=== PATIENT | male | born 1990 | race Caucasian/White ===

== ENCOUNTER 2016-11-03 14:31 | Emergency (ER) | payer MEDICAID ==
[~2016-11-03] VITALS: Ht 185.4 cm; Wt 75.0 kg
[2016-11-03] MEDS ORDERED: SODIUM CHLORIDE 0.9% 1,000ML IVBOLUS ONE ×2 (15:00→19:30)
[2016-11-03 15:50] LABS: BLOOD UREA NITROGEN 29 mg/dL (7-18)
[2016-11-03 15:55] LABS: IS PT STATUS REG ER OR PRE ER? YES
[2016-11-03 19:26] LABS: DAU SCREEN DISCLAIMER
[2016-11-03 22:34] VITALS: BP 108/54
== END 2016-11-03 23:10 | disposition home or self-care (01) ==
LOC: ED 17:47
DX: F15.129 Other stimulant abuse with intoxication, unspecified (principal)
CPT/HCPCS: 36415; 71010; 80048; 80307; 82040; 84484; 85025; 93005; 96360; 96361; 99285; J7030

== ENCOUNTER 2017-07-09 02:40 | Emergency (ER) | payer MEDICAID | END 2017-07-09 02:45 | LOC: MERGE 02:40 → ED 02:40 | DX: Z53.21 Procedure and treatment not carried out due to patient leaving prior to being seen by health care provider (principal) ==

== ENCOUNTER 2017-07-09 02:43 | Emergency (ER) | payer MEDICAID | END 2017-07-09 03:20 | LOC: ED 02:54 | DX: Z53.21 Procedure and treatment not carried out due to patient leaving prior to being seen by health care provider (principal) ==

== ENCOUNTER 2019-02-04 15:47 | Inpatient (IN) | payer MEDICAID ==
[~2019-02-04] VITALS: Ht 185.4 cm; Wt 74.0 kg
[2019-02-04 20:06] VITALS: BP 110/72
== END 2019-02-05 08:13 | disposition left against medical advice (07) | DRG 872 ==
LOC: ED 16:42 → EDIP 18:34 → 4EST 20:10
PROVIDERS: ADMIT Family Medicine; ATTEND Family Medicine
DX: A41.9 Sepsis, unspecified organism (principal); M62.82 Rhabdomyolysis; N17.9 Acute kidney failure, unspecified; E16.2 Hypoglycemia, unspecified; E86.0 Dehydration; Z53.21 Procedure and treatment not carried out due to patient leaving prior to being seen by health care provider; E87.6 Hypokalemia; F11.90 Opioid use, unspecified, uncomplicated; F12.90 Cannabis use, unspecified, uncomplicated; F15.90 Other stimulant use, unspecified, uncomplicated; F25.9 Schizoaffective disorder, unspecified; F43.10 Post-traumatic stress disorder, unspecified; F90.9 Attention-deficit hyperactivity disorder, unspecified type; J45.909 Unspecified asthma, uncomplicated; N30.91 Cystitis, unspecified with hematuria; Z80.0 Family history of malignant neoplasm of digestive organs; Z80.1 Family history of malignant neoplasm of trachea, bronchus and lung; Z87.891 Personal history of nicotine dependence; Z91.14 Patient's other noncompliance with medication regimen
CPT/HCPCS: 36415; 71045; 80048; 80076; 80307; 81001; 82040; 82550; 83605; 83735; 84443; 85025; 87040; 87086; 87389; 93005; 96361; 96374; G0378; J0696; J1644; J7030; J7120

== ENCOUNTER 2019-06-21 12:33 | Emergency (ER) | payer MEDICAID ==
[~2019-06-21] VITALS: Ht 185.4 cm; Wt 74.7 kg
[2019-06-21 12:38] VITALS: BP 112/67
[2019-06-21] MEDS ORDERED: LIDOCAINE-MPF 1%, 5ML INFIL ONE (13:00)
[2019-06-21] MEDS ORDERED: LIDOCAINE-MPF 1%, 5ML ONE (13:00)
--- NOTE | 2019-06-21 13:18 | NUR ---
BULKY GAUZE DRESSING APPLIED.
== END 2019-06-21 13:28 | disposition home or self-care (01) ==
LOC: ED 13:15
DX: L02.11 Cutaneous abscess of neck (principal); J45.909 Unspecified asthma, uncomplicated
CPT/HCPCS: 10060; 99283

== ENCOUNTER 2019-06-24 05:02 | Emergency (ER) | payer MEDICAID ==
[~2019-06-24] VITALS: Ht 185.4 cm; Wt 72.6 kg
[2019-06-24 05:04] VITALS: BP 123/71
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
== END 2019-06-24 06:23 | disposition home or self-care (01) ==
LOC: ED 05:13
DX: L02.512 Cutaneous abscess of left hand (principal); J45.909 Unspecified asthma, uncomplicated
CPT/HCPCS: 99283

== ENCOUNTER 2019-06-30 10:24 | Emergency (ER) | payer MEDICAID ==
[~2019-06-30] VITALS: Ht 185.4 cm; Wt 74.7 kg
[2019-06-30 10:40] VITALS: BP 98/61
== END 2019-06-30 11:18 | disposition home or self-care (01) ==
LOC: ED 11:03
DX: L02.11 Cutaneous abscess of neck (principal); F17.200 Nicotine dependence, unspecified, uncomplicated
CPT/HCPCS: 99283

== ENCOUNTER 2019-07-03 23:53 | Emergency (ER) | payer MEDICAID ==
[~2019-07-03] VITALS: Ht 185.4 cm; Wt 78.7 kg
[2019-07-03 23:56] VITALS: BP 135/87
--- NOTE | 2019-07-04 00:34 | NUR ---
Patient/Caregiver given discharge instructions and they have confirmed that they understand the instructions. Patient ambulatory with steady gait.
== END 2019-07-04 00:36 | disposition home or self-care (01) ==
LOC: ED 07-04 00:14
DX: L02.11 Cutaneous abscess of neck (principal); L02.414 Cutaneous abscess of left upper limb
CPT/HCPCS: 99282

== ENCOUNTER 2019-07-24 14:47 | Inpatient (IN) | payer MEDICAID ==
[~2019-07-24] VITALS: Ht 185.4 cm; Wt 84.7 kg
[2019-07-24] MEDS ORDERED: SODIUM CHLORIDE FLUSH 10ML SYR IVF ONE ×2 (16:00→18:00)
[2019-07-24 16:08] LABS: MEAN CORPUSCULAR HEMOGLOBIN 30.9 pg (27.5-34.5); MEAN CORPUSCULAR HGB CONC 34.5 g/dL (33.2-36.2); MEAN CORPUSCULAR VOLUME 89.7 fL (81-97); MEAN PLATELET VOLUME 7.9 fL (7.4-10.4); PLATELET COUNT 314 x10^3/uL (130-400); RED BLOOD COUNT 5.26 x10^6/uL (4.38-5.82); RED CELL DISTRIBUTION WIDTH 13.1 % (9.4-14.8)
[2019-07-24] MEDS ORDERED: LORazepam 1MG TABLET ONE ×2 (16:09→17:12)
[2019-07-24 16:16] LABS: ALBUMIN 4.8 g/dL (3.4-5.0); ANION GAP 13 mmol/L (5-15); CALCIUM 10.1 mg/dL (8.5-10.1); CHLORIDE 99 mmol/L (98-107); CREATININE 1.57 mg/dL (0.7-1.3)
[2019-07-24 16:18] LABS: MD YES
[2019-07-24] MEDS ORDERED: LORazepam 1MG TABLET PO ONE ×2 (16:30→17:30)
[2019-07-24 17:03] LABS: <PLATELET ESTIMATE> ADEQUATE; <PLT MORPHOLOGY> NORMAL PLT MORPH; <RBC MORPHOLOGY> NORMAL; BAND#(MANUAL) 0.36 x10^3/uL; BANDS%(MANUAL) 2 % (0-7); LYMPH#(MANUAL) 1.79 x10^3/uL (1-3.4); LYMPHS% (MANUAL) 10 % (22-44); MONOS#(MANUAL) 1.97 x10^3/uL (0.3-2.7); MONOS% (MANUAL) 11 % (2-9); SEG#(MANUAL) 13.78 x10^3/uL (1.8-6.8); SEGS% (MANUAL) 77 % (42-75)
[2019-07-24 17:20] LABS: CREATINE KINASE, TOTAL 82485 U/L (39-308)
--- NOTE | 2019-07-24 17:31 | NUR ---
SPOKE WITH PATIENT REGARDING DRUG USAGE AND FREQUENCY. 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 PATIENT ADMITTED TO USING COCAINE, ALCOHOL, AND MARIJUANA. PATIENT STATED THAT HE HAD A MEETING WITH HIS PROGRAM ADMINISTRATOR TWO DAYS AGO AND THAT CAUSED HIM TO PURCHASE METH. PATIENT ADMITTED HAVING SOBER TIME PERIODS WITHIN THE LAST TWO YEARS. ADMITTED TO RECENTLY BEING AT [facility] FOR LIKE COMPLICATIONS DUE TO METH USAGE. PATIENT ADMITS TO MENTAL HEALTH ISSUES, INCLUDING THE FOLLOWING; ANXIETY, PTSD, ADHD, SCHIZOPRENIA, AND "SCHIZOTPIA". PATIENT ADMITS TO BEING HOSPITALIZED IN INPATIENT SETTING. PATIENT WAS LIVING IN GROUP HOME HOUSE AFTER. PATIENT ADMITS TO WORKING IN A [employer] CURRENTLY. PATIENT'S CLOTHES ARE OF GOOD CONDITION, BELONGINGS APPEAR TO BE CLEAN. PATIENT ADMITS TO HAVING A SAFE PLACE TO SLEEP, FOOD, AND FRIENDS. PATIENT DID STATE DURING INTERVIEW THAT HE SHOULD HAVE NOTIFIED HIS PROGRAM ADMINISTRATOR THAT HE FELT THE URGE TO USE METH AGAIN, EXPRESSES REGRET R/T THIS. PATIENT IS CLOSE TO NURSES STATION WITHIN VIEW. PATIENT HAS NO COMPLICATIONS WITH AMBULATION. MD AWARE OF PATIENT'S BEHAVIORS.
[2019-07-24] MEDS ORDERED: SODIUM CHLORIDE 0.9% 1,000 ML IV ONE (17:59)
[2019-07-24] MEDS ORDERED: SODIUM CHLORIDE 0.9% 1,000ML IVBOLUS ONE (18:00)
[2019-07-24] MEDS ORDERED: LORazepam 2 MG/ML, 1ML ONE ×3 (19:04→21:55)
[2019-07-24] MEDS ORDERED: LORazepam 2 MG/ML, 1ML IVPush ONE ×4 (19:30→22:30)
--- NOTE | 2019-07-24 19:35 | NUR ---
PATIENT MOVED TO ROOM 02 TO IMPROVE PATIENT SAFETY. PATIENT'S BELONGINGS IN ROOM. REPORT GIVEN TO CHEO ESTES
--- NOTE | 2019-07-24 20:09 | NUR ---
Pt sleeping on gurney. Pt on 3L NC. Pt on full monitors. Positive chest rise and fall noted. NS infusing.
[2019-07-24] MEDS ORDERED: hydrALAzine 20 MG/ML, 1ML IVPush PRN (21:30)
[2019-07-24] MEDS ORDERED: ONDANSETRON 2MG/ML, 2ML IVPush PRN (21:30)
[2019-07-24] MEDS ORDERED: LORazepam 1MG TABLET PO PRN (21:30)
[2019-07-24] MEDS ORDERED: ACETAMINOPHEN 325 MG TABLET PO PRN (21:30)
[2019-07-24] MEDS ORDERED: THIAMINE 200 MG in SODIUM CHLORIDE 0.9% 50 ML IV ONE (21:30)
[2019-07-24] MEDS ORDERED: LACTATED RINGERS 1,000 ML IVBOLUS ONE (21:30)
[2019-07-24] MEDS ORDERED: SODIUM CHLORIDE FLUSH 10ML SYR IVF PRN (21:30)
--- NOTE | 2019-07-24 22:03 | NUR ---
Pt became very agitated and unable to verbally redirect. 1mg ativan given per verbal order. LR bolus started.
[2019-07-24] MEDS ORDERED: ZIPRASIDONE 20 MG INJ IM ONE ×2 (22:21→22:30)
--- NOTE | 2019-07-24 22:39 | NUR ---
Pt continued to thrash in bed, not follow verbal commands and twist his monitor wires and IV tubing around himself. 10mg geodon given per ER MD. Admitting MD at bedside.
--- NOTE | 2019-07-24 22:40 | NUR ---
Late Entry 2239- After receiving order from admitting MD, pt placed in 2 restraints, one to left wrist and one to right ankle d/t risk of injuring self - falling out of bed, pulling at lines. CMS intact. Pt on pulse ox/HR monitor. Pt on 3L oxymask for O2 >92%. LR continues to infuse. Respirations even and unlabored. BP 114/67.
--- NOTE | 2019-07-24 23:05 | NUR ---
Report given to CHEO Rodriguez
[2019-07-24 23:40] VITALS: BP 105/66
--- NOTE | 2019-07-24 23:40 | NUR ---
Late Entry - Pt transferred to inpatient unit. Pt asleep on gurney with 3L oxymask. VSS. CMS intact to left wrist and right ankle.
[2019-07-25] MEDS: LACTATED RINGERS 1,000 ML IV SCH ×6 (01:20→23:13)
[2019-07-25 01:53] VITALS: BP 116/72
[2019-07-25 03:25] LABS: AMPHETAMINE SCREEN, URINE Positive (Negative); BARBITURATE SCREEN, URINE Negative (Negative); BENZODIAZEPINE SCREEN, URINE Negative (Negative); CANNABINOID SCREEN, URINE Negative (Negative); COCAINE SCREEN, URINE Negative (Negative); METHADONE SCREEN, URINE Negative (Negative); OPIATE SCREEN, URINE Positive (Negative)
[2019-07-25 05:38] LABS: ANION GAP 11 mmol/L (5-15); CALCIUM 8.5 mg/dL (8.5-10.1); CHLORIDE 99 mmol/L (98-107); CREATININE 1.85 mg/dL (0.7-1.3)
[2019-07-25 06:03] LABS: MEAN CORPUSCULAR HEMOGLOBIN 30.9 pg (27.5-34.5); MEAN CORPUSCULAR HGB CONC 34.1 g/dL (33.2-36.2); MEAN CORPUSCULAR VOLUME 90.7 fL (81-97); MEAN PLATELET VOLUME 7.9 fL (7.4-10.4); PLATELET COUNT 235 x10^3/uL (130-400); RED BLOOD COUNT 4.57 x10^6/uL (4.38-5.82); RED CELL DISTRIBUTION WIDTH 13.5 % (9.4-14.8)
[2019-07-25 06:18] LABS: MD YES
[2019-07-25 06:23] LABS: EOS#(MANUAL) 0.13 x10^3/uL (0.0-0.4); EOS% (MANUAL) 1 % (1-7); LYMPH#(MANUAL) 3.02 x10^3/uL (1-3.4); LYMPHS% (MANUAL) 24 % (22-44); MONOS#(MANUAL) 1.64 x10^3/uL (0.3-2.7); MONOS% (MANUAL) 13 % (2-9); SEG#(MANUAL) 7.81 x10^3/uL (1.8-6.8); SEGS% (MANUAL) 62 % (42-75)
[2019-07-25 06:24] LABS: <PLATELET ESTIMATE> ADEQUATE; <PLT MORPHOLOGY> NORMAL PLT MORPH; <RBC MORPHOLOGY> NORMAL
[2019-07-25 06:42] LABS: CREATINE KINASE, TOTAL > 102000 U/L (39-308)
[2019-07-25 07:06] VITALS: BP 122/81
[2019-07-25 12:24] VITALS: BP 123/76
[2019-07-25 18:46] VITALS: BP 110/65
[2019-07-25] MEDS: morphine SULFATE 10 MG/ML, 1ML IVPush PRN ×2 (22:40→23:12)
[2019-07-25 23:08] VITALS: BP 136/92
[2019-07-26] MEDS: LACTATED RINGERS 1,000 ML IV SCH ×4 (03:31→19:39)
[2019-07-26 03:37] VITALS: BP 123/79
[2019-07-26] MEDS: morphine SULFATE 10 MG/ML, 1ML IVPush PRN ×4 (03:40→23:18)
[2019-07-26 08:05] VITALS: BP 132/89
[2019-07-26 08:17] LABS: ALANINE AMINOTRANSFERASE 281 U/L (12-78); ALBUMIN 2.9 g/dL (3.4-5.0); ANION GAP 10 mmol/L (5-15); CALCIUM 8.1 mg/dL (8.5-10.1); CHLORIDE 102 mmol/L (98-107); CREATININE 2.34 mg/dL (0.7-1.3)
[2019-07-26 08:32] LABS: BASOPHILS # (AUTO) 0.03 x10^3/uL (0-0.1); BASOPHILS % (AUTO) 0 % (0-1); EOSINOPHILS # (AUTO) 0.11 x10^3/uL (0-0.4); EOSINOPHILS % (AUTO) 2 % (1-7); LYMPHOCYTES # (AUTO) 0.87 x10^3/uL (1-3.4); LYMPHOCYTES % (AUTO) 13 % (22-44); MD SCAN; MEAN CORPUSCULAR HEMOGLOBIN 31.1 pg (27.5-34.5); MEAN CORPUSCULAR VOLUME 91.3 fL (81-97); MEAN PLATELET VOLUME 7.4 fL (7.4-10.4); MONOCYTES # (AUTO) 0.75 x10^3/uL (0.2-0.8); MONOCYTES % (AUTO) 11 % (2-9); NEUTROPHILS # (AUTO) 4.97 x10^3/uL (1.8-6.8); NEUTROPHILS % (AUTO) 74 % (42-75); PLATELET COUNT 155 x10^3/uL (130-400); RED BLOOD COUNT 3.73 x10^6/uL (4.38-5.82); RED CELL DISTRIBUTION WIDTH 13.4 % (9.4-14.8)
[2019-07-26 08:46] LABS: ALKALINE PHOSPHATASE 61 U/L (45-117); BILIRUBIN,TOTAL 0.8 mg/dL (0.2-1.0); TOTAL PROTEIN 5.7 g/dL (6.4-8.2)
[2019-07-26 09:53] LABS: CREATINE KINASE, TOTAL 56149 U/L (39-308)
[2019-07-26 12:31] VITALS: BP 136/81
[2019-07-26 18:40] VITALS: BP 146/88
[2019-07-27 00:18] VITALS: BP 124/67
[2019-07-27] MEDS: LACTATED RINGERS 1,000 ML IV SCH ×4 (00:46→15:10)
[2019-07-27] MEDS: morphine SULFATE 10 MG/ML, 1ML IVPush PRN ×4 (03:21→15:10)
[2019-07-27 07:25] VITALS: BP 125/76
[2019-07-27 13:50] VITALS: BP 136/87
== END 2019-07-27 18:27 | disposition left against medical advice (07) | DRG 683 ==
LOC: ED 21:35 → EDIP 21:40 → 3N 23:22
PROVIDERS: ADMIT Family Medicine; ATTEND Family Medicine
DX: N17.0 Acute kidney failure with tubular necrosis (principal); M62.82 Rhabdomyolysis; F15.10 Other stimulant abuse, uncomplicated; F41.0 Panic disorder [episodic paroxysmal anxiety]; G47.00 Insomnia, unspecified; Z53.29 Procedure and treatment not carried out because of patient's decision for other reasons
CPT/HCPCS: 36415; 80048; 80053; 80307; 82040; 82550; 83735; 84100; 85025; 96360; 96361; 96372; G0378; J3411; J3486; J2060; J2270; J7030; J7120

== ENCOUNTER 2020-04-20 18:33 | Emergency (ER) | payer MEDICAID ==
[~2020-04-20] VITALS: Ht 185.4 cm; Wt 73.0 kg
--- NOTE | 2020-04-20 19:28 | NUR ---
Pt comes in with meth withdrawal complaints. Patient stated that she smoked it yesterday and "just can't stop moving" Patient having jerking movements and talking. Unable to place data processing operator or continous O2 monitoring. Will con't to monitor patient
[2020-04-20 19:36] VITALS: BP 112/70
[2020-04-20 19:37] LABS: BASOPHILS % (AUTO) 0 % (0-1); EOSINOPHILS % (AUTO) 3 % (1-7); LYMPHOCYTES % (AUTO) 15 % (22-44); MEAN CORPUSCULAR HEMOGLOBIN 28.9 pg (27.5-34.5); MEAN CORPUSCULAR HGB CONC 33.1 g/dL (33.2-36.2); MEAN PLATELET VOLUME 7.9 fL (7.4-10.4); MONOCYTES % (AUTO) 8 % (2-9); NEUTROPHILS % (AUTO) 74 % (42-75); PLATELET COUNT 287 x10^3/uL (130-400); RED BLOOD COUNT 4.61 x10^6/uL (4.38-5.82); RED CELL DISTRIBUTION WIDTH 14.5 % (9.4-14.8)
[2020-04-20 19:38] LABS: MD NO
[2020-04-20 19:54] LABS: ALBUMIN 4.2 g/dL (3.4-5.0); ANION GAP 9 mmol/L (5-15); CALCIUM 9.4 mg/dL (8.5-10.1); CHLORIDE 102 mmol/L (98-107)
[2020-04-20 20:20] LABS: CREATINE KINASE, TOTAL 8876 U/L (39-308); CREATININE 0.88 mg/dL (0.7-1.3)
[2020-04-20 20:25] LABS: SALICYLATE LEVEL < 1.7 mg/dL (2.8-20.0)
[2020-04-20] MEDS ORDERED: LORazepam 1MG TABLET PO ONE (20:30)
[2020-04-20] MEDS ORDERED: LORazepam 1MG TABLET ONE (20:47)
--- NOTE | 2020-04-20 21:07 | NUR ---
unable to obtain discharge vitals due to patient unable to sit still. Patient was able to ambulate out of the ER to the waiting room
== END 2020-04-20 21:08 | disposition home or self-care (01) ==
LOC: ED 19:51
DX: M62.82 Rhabdomyolysis (principal); F41.1 Generalized anxiety disorder; F15.129 Other stimulant abuse with intoxication, unspecified; R00.0 Tachycardia, unspecified; F17.290 Nicotine dependence, other tobacco product, uncomplicated
CPT/HCPCS: 36415; 80048; 80307; 82040; 82550; 85025; 99283; 99406